=== PATIENT | male | born 1945 | race Caucasian/White ===

== ENCOUNTER 2019-08-13 09:04 | Day surgery (SDC) | payer OTHER ==
[~2019-08-13] VITALS: Ht 182.9 cm; Wt 133.6 kg
[2019-08-13] MEDS ORDERED: METF500C (09:33)
[2019-08-13] MEDS ORDERED: LISI5 (09:34)
[2019-08-13] MEDS ORDERED: ATORVASTATIN CA40 MG (09:34)
== END 2019-08-13 11:03 | disposition home or self-care (01) ==
LOC: ORSCSDS 09:04
PROVIDERS: Surgery
PROC: 0DJD8ZZ Inspection of Lower Intestinal Tract, Via Natural or Artificial Opening Endoscopic (ICD-10-PCS; principal; 2019-08-13 10:15)
DX: Z12.11 Encounter for screening for malignant neoplasm of colon (principal); Z86.010 Personal history of colon polyps; G47.33 Obstructive sleep apnea (adult) (pediatric); I10 Essential (primary) hypertension; E78.5 Hyperlipidemia, unspecified; E11.9 Type 2 diabetes mellitus without complications; E66.01 Morbid (severe) obesity due to excess calories; Z68.39 Body mass index [BMI] 39.0-39.9, adult; Z79.84 Long term (current) use of oral hypoglycemic drugs; Z79.899 Other long term (current) drug therapy; C61 Malignant neoplasm of prostate
CPT/HCPCS: 82947; J2250; J2704; J7120

== ENCOUNTER 2023-06-11 08:21 | Day surgery (SDC) | payer OTHER ==
[~2023-06-11] VITALS: Ht 182.9 cm; Wt 118.5 kg
[~2023-06-11 08:21] MED LIST: ATORVASTATIN CA40 MG; LISI5; METF500C PO
[2023-06-11] MEDS ORDERED: LISI5 PO (09:02)
[2023-06-11] MEDS ORDERED: JARDIANCE25 MG PO (09:02)
[2023-06-11] MEDS ORDERED: ROSU10TA PO (09:02)
--- NOTE | 2023-06-11 09:04 | NUR ---
06/11/23 0904 Yumiko Marquis AT 0853 PLEDGET AT 0854 PT [employer] BED. CALL LIGHT IN HAD. BED IN LOWEST POSITION. SIDE RAILS UP. NO QUESTIONS OR CONCERNS
[2023-06-11 10:00] VITALS: BP 133/77
--- NOTE | 2023-06-11 10:06 | NUR ---
06/11/23 1006 Papo Mohamud IV REMOVED INTACT. SITE WNL.
== END 2023-06-11 10:17 | disposition home or self-care (01) ==
LOC: ORSCSDS 08:21
PROVIDERS: Student in an Organized Health Care Education/Training Program
PROC: 08RK3JZ Replacement of Left Lens with Synthetic Substitute, Percutaneous Approach (ICD-10-PCS; principal; 2023-06-11 10:00)
DX: E11.36 Type 2 diabetes mellitus with diabetic cataract (principal); H21.81 Floppy iris syndrome; I10 Essential (primary) hypertension; G47.33 Obstructive sleep apnea (adult) (pediatric); E66.9 Obesity, unspecified; Z68.35 Body mass index [BMI] 35.0-35.9, adult; Z79.84 Long term (current) use of oral hypoglycemic drugs
CPT/HCPCS: 82947; J2250; J3010; J7040; V2632

== ENCOUNTER 2023-06-18 10:21 | Day surgery (SDC) | payer OTHER ==
[~2023-06-18] VITALS: Ht 182.9 cm; Wt 117.7 kg
[~2023-06-18 10:21] MED LIST changes: +JARDIANCE25 MG PO; +LISI5 PO; +ROSU10TA PO
--- NOTE | 2023-06-18 11:19 | NUR ---
06/18/23 1119 Michelle Rice TETRALETY: 1117 SCOTT: [id number]
[2023-06-18 12:15] VITALS: BP 132/74
== END 2023-06-18 12:23 | disposition home or self-care (01) ==
LOC: ORSCSDS 10:21
PROVIDERS: Student in an Organized Health Care Education/Training Program
PROC: 08RJ3JZ Replacement of Right Lens with Synthetic Substitute, Percutaneous Approach (ICD-10-PCS; principal; 2023-06-18 12:00)
DX: E11.36 Type 2 diabetes mellitus with diabetic cataract (principal); H52.201 Unspecified astigmatism, right eye; H21.81 Floppy iris syndrome; Z96.1 Presence of intraocular lens; I10 Essential (primary) hypertension; Z79.84 Long term (current) use of oral hypoglycemic drugs; Z79.899 Other long term (current) drug therapy
CPT/HCPCS: 82947; J2250; J3010; J7040; V2632